=== PATIENT | female | born 1980 | race Caucasian/White ===

== ENCOUNTER 2017-11-17 05:40 | Emergency (ER) | payer OTHER ==
[2017-11-17 06:02] VITALS: TEMP 98.6
--- NOTE | 2017-11-17 06:21 | ED PDOC ---
HPI: General Adult Time Seen by Provider: 11/17/17 05:51 Chief Complaint (Nursing): Rib Injury Chief Complaint (Provider): Rib Pain History Per: Patient History/Exam Limitations: no limitations Onset/Duration Of Symptoms: Hrs (since last night) Current Symptoms Are (Timing): Still Present Additional Complaint(s): 37 year old female presents to ED with complaints of atraumatic right upper rib pain since last night and has no past medical history. (+) SOB and pleuritic chest pain. (-) fever, vomiting, diarrhea, or rash. PCP: None Past Medical History Reviewed: Historical Data, Nursing Documentation, Vital Signs Vital Signs: Last Vital Signs Temp 98.6 F 11/17/17 11:03 Pulse 82 11/17/17 11:03 Resp 18 11/17/17 11:03 BP 113/68 11/17/17 11:03 Pulse Ox 99 11/17/17 11:03 - Medical History PMH: No Chronic Diseases - Surgical History Surgical History: No Surg Hx - Family History Family History: States: Unknown Family Hx - Social History Current smoker - smoking cessation education provided: No Ex-Smoker (has not smoked in the last 12 months): No Alcohol: None Drugs: Denies - Home Medications Home Medications: Ambulatory Orders Medication Instructions Recorded Ibuprofen [Motrin] 600 mg PO Q6 PRN #20 tab 12/20/14 Oxycodone HCl/Acetaminophen 1 tab PO Q4 #10 tab 12/20/14 [Percocet 325 mg-5 mg] - Allergies Allergies/Adverse Reactions: Allergies Allergy/AdvReac Type Severity Reaction Status Date / Time No Known Allergies Allergy Verified 12/19/14 22:52 Review of Systems ROS Statement: Except As Marked, All Systems Reviewed And Found Negative Constitutional: Negative for: Fever Cardiovascular: Positive for: Chest Pain (pleuritic), Other (right rib pain) Respiratory: Positive for: Shortness of Breath, Pleuritic Pain Gastrointestinal: Negative for: Vomiting, Diarrhea Skin: Negative for: Rash Physical Exam - Reviewed Nursing Documentation Reviewed: Yes Vital Signs Reviewed: Yes - Physical Exam Appears: Positive for: Non-toxic, No Acute Distress Skin: Positive for: Normal Color, Warm, Dry. Negative for: Rash Neck: Positive for: Normal Cardiovascular/Chest: Positive for: Regular Rate, Rhythm. Negative for: Chest Non Tender (minimal tenderness to the right upper rib area, both anteriorly and posteriorly), Bradycardia Respiratory: Positive for: Normal Breath Sounds. Negative for: Respiratory Distress Gastrointestinal/Abdominal: Positive for: Soft. Negative for: Tenderness Extremity: Positive for: Normal ROM Neurologic/Psych: Positive for: Alert, Oriented. Negative for: Motor/Sensory Deficits - Laboratory Results Result Diagrams: 11/17/17 06:29 11/17/17 06:29 - ECG O2 Sat by Pulse Oximetry: 98 (RA) Pulse Ox Interpretation: Normal Medical Decision Making Medical Decision Makin Initial impression: rib pain, rule out pneumonia, r/o pulmonary embolism Initial plan: * Labs * D Dimer * CXR * Toradol 30mg IV * Re-eval 07 Patient signed out to Dr. Vee pending ED work up (labs, CXR, D Dimer). Scribe Attestation: Documented by Teresa Hensley, acting as a scribe for Corwin Bravo MD. Provider Scribe Attestation: All medical record entries made by the Scribe were at my direction and personally dictated by me. I have reviewed the chart and agree that the record accurately reflects my personal performance of the history, physical exam, medical decision making, and the department course for this patient. I have also personally directed, reviewed, and agree with the discharge instructions and disposition. Disposition - Clinical Impression Clinical Impression: Rib pain - Patient ED Disposition Is Patient to be Admitted: Transfer of Care - Disposition Referrals: [facility] [Outside] Disposition: Transfer of Care Disposition Time: 07:00 Condition: STABLE Additional Instructions: Take motrin for pain. Follow up with your PCP in 2-3 days. Instructions: Pleuritic Chest Pain Patient Signed Over To: Linda Vee Handoff Comments: pending ED work up (labs, CXR, D Dimer)
[2017-11-17 06:42] LABS: BASO % 0.5 % (0.0-2.0); EOS # 0.3 K/uL (0.0-0.7); EOS % 2.5 % (0.0-4.0); HEMOGLOBIN 14.2 g/dL (12.0-16.0); LYMPH # 1.6 K/uL (1.0-4.3); MEAN CELL VOLUME 87.4 fl (81.0-99.0); MEAN CORPUSCULAR HEMOGLOBIN 29.8 pg (27.0-31.0); MEAN CORPUSCULAR HGB CONC 34.1 g/dL (33.0-37.0); MONO # 0.6 K/uL (0.0-0.8); MONO % 6.1 % (0.0-10.0); NEUT # 7.6 K/uL (1.8-7.0); NEUT % 74.9 % (50.0-75.0); RBC 4.78 Mil/uL (3.80-5.20); RED CELL DISTRIBUTION WIDTH 12.9 % (11.5-14.5); WHITE BLOOD COUNT 10.1 K/uL (4.8-10.8)
[2017-11-17 06:53] LABS: ALB/GLOB RATIO 1.3 (1.0-2.1); ALBUMIN 4.4 g/dL (3.5-5.0); ALT/SGPT 62 U/L (9-52); AST/SGOT 31 U/L (14-36); BLOOD UREA NITROGEN 18 mg/dl (7-17); CALCIUM 9.3 mg/dL (8.4-10.2); GFR AFRICAN-AMERICAN > 60; GFR NON-AFRICAN AMERICAN > 60
--- NOTE | 2017-11-17 09:25 | RAD ---
HISTORY: r rib pain pleuritic chest pain COMPARISON: No prior. TECHNIQUE: Chest PA and lateral FINDINGS: LUNGS: No active pulmonary disease. PLEURA: No significant pleural effusion identified. No pneumothorax apparent. CARDIOVASCULAR: Normal. OSSEOUS STRUCTURES: No significant abnormalities. VISUALIZED UPPER ABDOMEN: Normal. OTHER FINDINGS: None. IMPRESSION: No active disease. On these images no gross right rib lytic lesion or fracture or pleural parenchymal pathology here is noted. If there is any concern for intrinsic right rib pathology, consider right rib x-ray series.
--- NOTE | 2017-11-17 10:42 | ED PDOC ---
- Laboratory Results Result Diagrams: 11/17/17 06:29 11/17/17 06:29 - ECG O2 Sat by Pulse Oximetry: 98 (RA) - Radiology X-Ray: Viewed By Me, Read By Radiologist X-Ray Interpretation: No Acute Disease - Progress Re-evaluation Time: 09:00 Condition: Re-examined, Improved Medical Decision Making Medical Decision Makin:00 Patient endorsed to me by Dr. Bravo pending labs. Scribe Attestation: Documented by Jean Recinos, acting as a scribe for Linda Vee MD. Provider Scribe Attestation: All medical record entries made by the Scribe were at my direction and personally dictated by me. I have reviewed the chart and agree that the record accurately reflects my personal performance of the history, physical exam, medical decision making, and the department course for this patient. I have also personally directed, reviewed, and agree with the discharge instructions and disposition. Disposition Doctor Will See Patient In The: Office Counseled Patient/Family Regarding: Studies Performed, Diagnosis, Need For Followup - Clinical Impression Clinical Impression: Rib pain - POA Present On Arrival: None - Disposition Referrals: [facility] [Outside] Disposition: Routine/Home Disposition Time: 09:00 Condition: GOOD Additional Instructions: Take motrin for pain. Follow up with your PCP in 2-3 days. Instructions: Pleuritic Chest Pain
[2017-11-17 11:04] VITALS: BP 113/68; PULSE 82; RESP 18
--- NOTE | 2017-11-17 18:03 | CARD ---
APPROVED REPORT EKG Measurement Heart [id number] <Conclusion> Normal sinus rhythm Normal ECG
[2017-11-18 16:40] VITALS: O2SAT 98
== END 2017-11-17 11:03 | disposition home or self-care (01) ==
LOC: H.ER 05:40
DX: R07.81 Pleurodynia (principal); Z87.891 Personal history of nicotine dependence
CPT/HCPCS: 71046; 80053; 81025; 85025; 85378; 93005; 99284; J1885